=== PATIENT | female | born 1960 | race Two or more races ===

== ENCOUNTER → 2017-08-09 10:05 | Outpatient (CLI) | payer OTHER | END | disposition home or self-care (01) | LOC: LAB 10:05 | DX: R31.9 Hematuria, unspecified (principal) ==

== ENCOUNTER → 2017-08-09 | Outpatient (CLI) | payer OTHER ==
[~2017-08-09] MED LIST: ALBUTEROL17 GM; AVELOX ABC PAC400 MG; BENZONATATE100 MG; METFORMIN HCL750 MG
== END | disposition home or self-care (01) ==
LOC: SONOGRAMA 11:02
DX: R31.9 Hematuria, unspecified (principal); R10.2 Pelvic and perineal pain; R10.9 Unspecified abdominal pain

== ENCOUNTER → 2017-08-09 | Outpatient (CLI) | payer OTHER ==
[~2017-08-09] VITALS: Ht 152.4 cm; Wt 86.2 kg
== END | disposition home or self-care (01) ==
LOC: PPHC 08:26
DX: R10.2 Pelvic and perineal pain (principal); R31.9 Hematuria, unspecified

== ENCOUNTER 2018-03-08 11:16 | Emergency (ER) | payer OTHER ==
[~2018-03-08] VITALS: Ht 165.1 cm; Wt 86.2 kg
[2018-03-08] MEDS ORDERED: SIMVASTATIN80 MG (11:33)
[2018-03-08] MEDS ORDERED: PNEU16DI2 (11:34)
[2018-03-08] MEDS ORDERED: NEURONTIN300 MG (11:34)
== END 2018-03-08 15:44 | disposition home or self-care (01) ==
LOC: ER 11:16
DX: M62.838 Other muscle spasm (principal)

== ENCOUNTER 2019-11-09 10:30 | Emergency (ER) | payer OTHER ==
[~2019-11-09] VITALS: Ht 165.1 cm; Wt 71.7 kg
[~2019-11-09 10:30] MED LIST changes: +NEURONTIN300 MG; +PNEU16DI2; +SIMVASTATIN80 MG
[2019-11-09] MEDS ORDERED: VENTOLIN HFA18 GM IH (16:53)
[2019-11-09] MEDS ORDERED: TESSALON PERLE100 M1 PO (16:53)
[2019-11-09] MEDS ORDERED: AIRBORNE EFFER1 EACH PO (16:53)
[2019-11-09] MEDS ORDERED: MUCINEX DM ER1 EAC1 PO (16:53)
== END 2019-11-09 17:41 | disposition home or self-care (01) ==
LOC: ER 10:30
DX: J06.9 Acute upper respiratory infection, unspecified (principal)